=== PATIENT | male | born 1950 | race Asian ===

== ENCOUNTER 2018-08-01 11:23 | Inpatient (IN) | payer MEDICARE, OTHER ==
[~2018-08-01] VITALS: Ht 167.6 cm; Wt 54.0 kg
--- NOTE | 2018-08-01 11:40 | NUR ---
C/O COUGH x 3 DAYS, PATIENT PLACED ON THE MONITOR, BREATHING EVEN AND UNLABORED, NO SOB NOTED, HR APPEARS TO BE ELEVATED. WILL MONITOR.
[2018-08-01 12:00] LABS: BASOPHILS % (AUTO) 0.6 % (0.0-2.0); EOSINOPHILS % (AUTO) 0.3 % (0.0-6.0); HEMATOCRIT 47 % (39-51); LYMPHOCYTES # (AUTO) 1.8 /CMM (0.8-4.8); MEAN CORPUSCULAR HGB CONC 34 g/dl (31.0-36.0); MEAN CORPUSCULAR VOLUME 97 fL (80-96); MONOCYTES # (AUTO) 0.7 /CMM (0.1-1.30); MONOCYTES % (AUTO) 11.6 % (2.0-12.0); NEUTROPHILS # (AUTO) 3.1 /CMM (1.8-8.9); NEUTROPHILS % (AUTO) 55.5 % (43.0-81.0); PLATELET COUNT (AUTO) 133 /CMM (150-450); RED BLOOD CELL COUNT(AUTO) 4.85 MIL/uL (4.5-6.0); WHITE BLOOD COUNT (AUTO) 5.6 K/uL (4.3-11.0)
[2018-08-01 12:08] LABS: CALCIUM, SERUM 8.6 mg/dL (8.5-10.1); POTASSIUM 4.1 mmol/L (3.5-5.1)
[2018-08-01 12:13] LABS: ALBUMIN 3.4 g/dL (3.4-5.0); BILIRUBIN,DIRECT 0.1 mg/dL (0.0-0.2); BILIRUBIN,TOTAL 0.5 mg/dL (0.2-1.0); TOTAL PROTEIN, SERUM 8.3 g/dL (6.4-8.2)
--- NOTE | 2018-08-01 13:29 | NUR ---
INFORMED DR. THOMAS PATIENT HAS HR OF 140S. RECEIVED ORDER FOR EKG AND RECHECK TEMP. WILL CONTINUE TO MONITOR.
[2018-08-01] MEDS ORDERED: CEFTRIAXONE 1GM BAG (ER ONLY) 50 ML IV ONE (13:36)
[2018-08-01] MEDS ORDERED: ACETAMINOPHEN ES 500 MG TABLET ONE (13:36)
--- NOTE | 2018-08-01 13:36 | NUR ---
CALLED NURSING SUP FOR TELE BED
--- NOTE | 2018-08-01 13:44 | NUR ---
MARCIN CALLED, EVENT PLANNING INTERN DOCTOR PAGED
--- NOTE | 2018-08-01 13:49 | NUR ---
EPIC DOCTOR RE-PAGED
[2018-08-01] MEDS ORDERED: DIGO125T PO (13:58)
[2018-08-01] MEDS ORDERED: FURO20TA4 PO (13:58)
[2018-08-01] MEDS ORDERED: SACU1TAB PO (13:58)
[2018-08-01] MEDS ORDERED: CARV3.122 PO (13:58)
[2018-08-01] MEDS ORDERED: LEVO25TA9 PO (13:58)
[2018-08-01] MEDS ORDERED: PIOG15TA8 PO (13:58)
[2018-08-01] MEDS ORDERED: LINA5TAB PO (13:58)
[2018-08-01] MEDS ORDERED: IV NS 0.9% 1,000 ML BAG IV ONE (14:00)
[2018-08-01] MEDS ORDERED: AZITHROMYCIN 500 MG in IV D5W 250 ML IV ONE (14:00)
[2018-08-01] MEDS ORDERED: CEFTRIAXONE 1 G in IV D5W 50 ML IV ONE (14:00)
--- NOTE | 2018-08-01 14:21 | NUR ---
REPORT GIVEN TO TATIANA REAVES.
--- NOTE | 2018-08-01 14:35 | NUR ---
PATIENT TRANSFERRED TO ROOM 321-1 VIA ACLS PROTOCOL. NO DISTRESS NOTED, IVF AND IV ANTIBIOTIC STILL INFUSING. ENDORSED TO TATIANA REAVES FOR CRUZ.
[2018-08-01 15:30] VITALS: BP 131/78
--- NOTE | 2018-08-01 15:30 | NUR ---
RECEIVED PATIENT FROM ER VIA [facility]. PATIENT IS AMBULATORY, WALKED FROM [facility] TO THE ROOM THEN LAID ON BED. A/OX4, ABLE TO MAKE NEEDS KNOWN. UNDERSTANDS SUDANESE. NOT IN ANY FORM OF DISTRESS, NO SOB. ON 2LPM O2 VIA NASAL CANNULA, SATTING AT 98%. DENIED PAIN OR DISCOMFORT AT THIS TIME. PLACED ON TELEMONIOTRING, SINUS TACHY HR ON 120s. IV ACCESS ON LEFT AC GAUGE 20 INTACT AND PATENT, ABX INFUSING FROM ER. PAGE DR MAX FOR ADMITTING ORDERS. ALL BELONGINGS CHECK AND NOTED ON CHECKLIST BY LUIS NEGRON. REFUSED BODY CHECK, PATIENT SAID HE HAS NO WOUNDS. KEPT PATIENT SAFE AND COMFORTABLE. BED IN LOW/LOCKED POSITION, SIDERAILS UPX2, CALL LIGHT IN REACH. WILL CONTINUE TO MONITOR ACCORDINGLY.
--- NOTE | 2018-08-01 16:00 | NUR ---
RN NOTES: SON'S CONTACT [phone] - TAMMYI
--- NOTE | 2018-08-01 16:00 | NUR ---
RN NOTES PATIENT'S SON CALLED AND INFORMED NURSE THAT PATIENT USES DRUGS, AND PATIENT ALWAYS GETS HOSPITALIZED BECAUSE OF DRUG USE. PATIENT'S SON ASKED IF PATIENT IS POSITIVE FOR DRUGS. PRIMARY NURSE TOLD PATIENT'S SON THAT WE CAN NOT GIVE ANY INFORMATION ABOUT HIS FATHER WITHOUT HIS CONSENT, PATIENT SON VERBALIZED UNDERSTANDING. INFORMED PATIENT THAT SON WANTS TO KNOW ABOUT HIS MEDICAL CONDITION/INFORMATION, PATIENT SAID "NO. DON'T GIVE ANY INFORMATION."...
[2018-08-01] MEDS ORDERED: ONDANSETRON HCL/PF 4 MG/2 ML VIAL IVP PRN (17:00)
[2018-08-01] MEDS ORDERED: MAG HYDROX/AL HYDROX/SIMETH 30 ML UDC PO PRN (17:00)
[2018-08-01] MEDS ORDERED: ALBUTEROL FS 2.5 MG/0.5 ML VIAL.NEB NEB PRN (17:00)
[2018-08-01] MEDS ORDERED: HYDROCODONE/APAP 5/325MG 1 EACH TABLET PO PRN (17:00)
[2018-08-01] MEDS ORDERED: ACETAMINOPHEN 325 MG TABLET PO PRN (17:00)
[2018-08-01] MEDS ORDERED: Z GUARD REMEDY 2 OZ OINT TP PRN (17:00)
[2018-08-01] MEDS ORDERED: IPRATROPIUM NEB FS 0.5 MG/2.5 ML AMPUL.NEB NEB PRN (17:00)
[2018-08-01] MEDS ORDERED: ZOLPIDEM TARTRATE 5 MG TABLET PO PRN (17:00)
[2018-08-01] MEDS ORDERED: MAGNESIUM HYDROXIDE 30 ML UDC PO PRN (17:00)
[2018-08-01] MEDS: LEVOFLOXACIN 750 MG /D5W 150ML 750 MG in PREMIX 1 EA IV SCH (18:08)
[2018-08-01] MEDS: methylPREDNISolone SOD SUCC 125 MG/2ML VIAL IV SCH (18:13)
[2018-08-01] MEDS: ENOXAPARIN SODIUM 40 MG/0.4 ML DISP.SYRIN SQ SCH (18:14)
--- NOTE | 2018-08-01 19:38 | NUR ---
RN CLOSING NOTES PATIENT IN STABLE CONDITION. ALL NEEDS ATTENDED AND PROVIDED, ALL DUE MEDS GIVEN ORDERED. ASSISTED WITH ADLs. KEPT PATIENT SAFE AND COMFORTABLE. BED IN LOW/LOCKED POSITION, SIDERAILS UPX2 CALL LIGHT IN EACH. ENDORSED TO NIGHT RN FOR CRUZ.
--- NOTE | 2018-08-01 19:40 | NUR ---
TELE/RN NOTES RECEIVED PT. LYING IN BED. PT. IS AWAKE, ALERT AND ORIENTED X3. BREATHING EVEN AND UNLABORED ON ROOM AIR. NO SOB, RESPIRATORY DISTRESS OR COMPLAINTS OF PAIN NOTED AT THIS TIME. PT. WITH EXTERNAL ARTIST RELATIONSHIP MANAGER PRESENT AND INTACT. CURRENT RHYTHM = SINUS RHYTHM HR 74PT. WITH LEFT AC 20 GAUGE IV SALINE LOCK PRESENT, PATENT AND INTACT. BED LOCKED AND IN LOWEST POSITION, SIDE RAILS UP X2, CALL LIGHT WITHIN REACH, WILL CONTINUE TO MONITOR.
[2018-08-01 20:00] VITALS: BP 114/64
[2018-08-01] MEDS: VALSARTAN 40 MG TABLET PO SCH (22:31)
[2018-08-02] VITALS: BP 138/69
[2018-08-02] MEDS: methylPREDNISolone SOD SUCC 125 MG/2ML VIAL IV SCH ×4 (01:03→17:04)
[2018-08-02 03:55] VITALS: BP 132/72
[2018-08-02 05:33] LABS: BASOPHILS % (AUTO) 1.2 % (0.0-2.0); HEMATOCRIT 50 % (39-51); HEMOGLOBIN 16.8 g/dL (13.5-17.5); LYMPHOCYTES # (AUTO) 0.9 /CMM (0.8-4.8); LYMPHOCYTES % (AUTO) 37.9 % (20.0-44.0); MEAN CORPUSCULAR HGB CONC 34 g/dl (31.0-36.0); MEAN CORPUSCULAR VOLUME 96 fL (80-96); MONOCYTES # (AUTO) 0.1 /CMM (0.1-1.30); MONOCYTES % (AUTO) 6.2 % (2.0-12.0); NEUTROPHILS # (AUTO) 1.3 /CMM (1.8-8.9); NEUTROPHILS % (AUTO) 54.7 % (43.0-81.0); PLATELET COUNT (AUTO) 130 /CMM (150-450); RED BLOOD CELL COUNT(AUTO) 5.19 MIL/uL (4.5-6.0); WHITE BLOOD COUNT (AUTO) 2.4 K/uL (4.3-11.0)
[2018-08-02 05:50] LABS: CREATININE 0.9 mg/dL (0.6-1.3); PHOSPHORUS 3.7 mg/dL (2.5-4.9); POTASSIUM 4.7 mmol/L (3.5-5.1)
--- NOTE | 2018-08-02 06:54 | NUR ---
TELE/RN NOTES PT. IS LYING IN BED RESTING. BREATHING EVEN AND UNLABORED ON ROOM AIR. NO SOB, RESPIRATORY DISTRESS OR COMPLAINTS OF PAIN NOTED AT THIS TIME. PT. WITH EXTERNAL SALES SUPPORT ASSOCIATE PRESENT AND INTACT. CURRENT RHYTHM = SINUS RHYTHM HR 67. PT. WITH RIGHT FOREARM 22 GAUGE IV SALINE LOCK PRESENT, PATENT AND INTACT. ALL PT. NEEDS MET. BED LOCKED AND IN LOWEST POSITION, SIDE RAILS UP X2, CALL LIGHT WITHIN REACH, WILL ENDORSE TO DAYSHIFT NURSE FOR CONTINUITY OF CARE.
[2018-08-02 07:14] LABS: THYROID STIMULATING HORMONE 4.362 uIU/mL (0.358-3.74)
[2018-08-02 08:00] VITALS: BP 139/77
--- NOTE | 2018-08-02 08:00 | NUR ---
MS RN NOTES PATIENT NOTED IN BED RESTING NO SOB OR ACUTE DISTRESS NOTED. PATIENT ALERT, ORIENTED X3. BED IN LOW LOCKED POSITION. CALL LIGHT WITHIN REACH. PERIPHERAL IV INTACT PATENT. WILL CONTINUE TO MONITOR.
[2018-08-02] MEDS: LEVOTHYROXINE SODIUM 25 MCG TABLET PO SCH (08:11)
[2018-08-02] MEDS: PIOGLITAZONE HCL 15 MG TABLET PO SCH (08:11)
[2018-08-02] MEDS: VALSARTAN 40 MG TABLET PO SCH ×2 (08:11→21:25)
[2018-08-02] MEDS: LINAGLIPTIN 5 MG TABLET PO SCH (08:11)
[2018-08-02] MEDS ORDERED: DIGOXIN 0.125 MG TABLET PO SCH (09:00)
[2018-08-02] MEDS: DIGOXIN 0.125 MG TABLET PO SCH (12:11)
[2018-08-02 16:00] VITALS: BP 102/60
[2018-08-02] MEDS: LEVOFLOXACIN 750 MG /D5W 150ML 750 MG in PREMIX 1 EA IV SCH (17:03)
--- NOTE | 2018-08-02 19:07 | NUR ---
MS RN NOTES PATIENT IN BED RESTING NO SOB OR ACUTE DISTRESS NOTED. ALL DUE MEDICATIONS ADMINISTERED. ALL NEEDS MET. NO ACUTE CHANGES NOTED DURING SHIFT WILL ENDORSE CARE TO PM SHIFT.
--- NOTE | 2018-08-02 19:10 | NUR ---
CHANGE OF SHIFT REPORT Patient in bed, awake, A/O x 4. Stable saturation on RA denies SOB. IV antibiotic infusing. Instruction given to use call light for assistance, verbalized understanding. Maintained safety.
[2018-08-02 20:00] VITALS: BP 111/68
[2018-08-02] MEDS: ENOXAPARIN SODIUM 40 MG/0.4 ML DISP.SYRIN SQ SCH (21:27)
[2018-08-03] MEDS: methylPREDNISolone SOD SUCC 125 MG/2ML VIAL IV SCH ×3 (00:24→12:13)
--- NOTE | 2018-08-03 06:03 | NUR ---
END OF SHIFT REPORT Patient in bed, stable oxygen saturation on RA, no cough denies SOB. On IV steroids. Denies pain. Ambulates to the bathroom, voiding without difficulty. Independent with bed mobility. On IV antibiotic as scheduled. Afebrile, VSS. Echo, blood cx result pending. No acute events overnight. Maintained safety.
[2018-08-03 08:00] VITALS: BP 133/74
[2018-08-03 08:29] VITALS: BP 133/74
[2018-08-03] MEDS: LEVOTHYROXINE SODIUM 25 MCG TABLET PO SCH (08:29)
[2018-08-03] MEDS: PIOGLITAZONE HCL 15 MG TABLET PO SCH (08:29)
[2018-08-03] MEDS: VALSARTAN 40 MG TABLET PO SCH (08:29)
[2018-08-03] MEDS: LINAGLIPTIN 5 MG TABLET PO SCH (08:29)
[2018-08-03] MEDS ORDERED: ALBU18HF2 INH (10:28)
[2018-08-03] MEDS ORDERED: METH4TAB3 PO (10:28)
[2018-08-03] MEDS: DIGOXIN 0.125 MG TABLET PO SCH (12:14)
--- NOTE | 2018-08-03 15:26 | NUR ---
MS RN NOTES PATIENT DISCHARGED HOME. PATIENT ALERT, ORIENTED X4 DENIES ANY DISTRESS OR SOB. PATIENT PROVIDED WITH TAXI TO FAMILY HOME. DISCHARGE TEACHING PROVIDED, VERBALIZED UNDERSTANDING. DISCHARGE PROTOCOL FOLLOWED. PERIPHERAL IV REMOVED WITH MINIMAL BLEEDING. ID BAND REMOVED. MD AWARE OF ALL ABNORMAL LABS AND TESTS. PRESCRIPTION PROVED PATIENT WITH INSTRUCTIONS OF MEDICATION. PATIENT ESCORTED TO CAR.
== END 2018-08-03 15:20 | disposition home or self-care (01) | DRG 191 ==
LOC: ER 11:29 → TELE 14:13 → MED 08-02 09:06
PROVIDERS: ATTEND Registered Nurse
DX: J44.1 Chronic obstructive pulmonary disease with (acute) exacerbation (principal); I50.42 Chronic combined systolic (congestive) and diastolic (congestive) heart failure; I11.0 Hypertensive heart disease with heart failure; E03.9 Hypothyroidism, unspecified; E11.9 Type 2 diabetes mellitus without complications; F17.210 Nicotine dependence, cigarettes, uncomplicated; E78.5 Hyperlipidemia, unspecified; F15.90 Other stimulant use, unspecified, uncomplicated; F14.90 Cocaine use, unspecified, uncomplicated
CPT/HCPCS: 36415; 71045-TC; 80048-TC; 80061-TC; 80076-TC; 80162-TC; 80305; 83605-TC; 83735-TC; 84100-TC; 84443-TC; 84484-TC; 85025-TC; 85730-TC; 87040-TC; 87081-TC; 93307-TC; 97116-TC; 97530-TC; A4216; G0378; J0456; J0696; J1650; J1956; J2930; J7030; J7060